=== PATIENT | female | born 1960 | race Caucasian/White ===

== ENCOUNTER 2019-05-07 15:05 | Emergency (ER) | payer MEDICAID ==
[~2019-05-07] VITALS: Ht 157.5 cm; Wt 81.6 kg
[2019-05-07 15:15] VITALS: BP 145/85
== END 2019-05-07 15:51 | disposition home or self-care (01) ==
LOC: ER 15:14
DX: B02.9 Zoster without complications (principal)

== ENCOUNTER 2021-04-18 13:10 | Emergency (ER) | payer MEDICAID ==
[~2021-04-18] VITALS: Ht 165.1 cm; Wt 75.7 kg
--- NOTE | 2021-04-18 13:40 | NUR ---
EPIGASTRIC AREA PAIN, + NAUSEA ON AND OFF X 2 DAYS. PT AAOX4, VSS RR EVEN & UNLABORED. DENIES CP, SOB, DIZZINESS, DIARRHEA AT THIS TIME. AWAITING EVAL BY ERMD. WILL CONT TO MONITOR.
[2021-04-18] MEDS ORDERED: LIDOCAINE VISCOUS 2% UD 15 ML UDC ONE (14:27)
[2021-04-18] MEDS ORDERED: MAG HYDROX/AL HYDROX/SIMETH 30 ML UDC ONE (14:27)
[2021-04-18] MEDS ORDERED: ONDANSETRON HCL/PF 4 MG/2 ML VIAL ONE (14:27)
[2021-04-18] MEDS ORDERED: FAMOTIDINE/PF INJ 20 MG/2 ML VIAL IV ONE ×2 (14:27→14:30)
[2021-04-18] MEDS ORDERED: MAG HYDROX/AL HYDROX/SIMETH 30 ML UDC PO ONE (14:30)
[2021-04-18] MEDS ORDERED: ONDANSETRON HCL/PF 4 MG/2 ML VIAL IVP ONE (14:30)
[2021-04-18] MEDS ORDERED: IV NS 0.9% 1,000 ML BAG IV ONE (14:30)
[2021-04-18] MEDS ORDERED: LIDOCAINE VISCOUS 2% UD 15 ML UDC MM ONE (14:30)
[2021-04-18 14:40] LABS: BASOPHILS % (AUTO) 0.5 % (0.0-2.0); EOSINOPHILS % (AUTO) 0.1 % (0.0-6.0); HEMATOCRIT 40 % (33-45); HEMOGLOBIN 13.3 g/dL (11.5-14.8); LYMPHOCYTES # (AUTO) 1.1 K/uL (0.8-4.8); LYMPHOCYTES % (AUTO) 10.8 % (20.0-44.0); MEAN CORPUSCULAR HGB CONC 33 g/dl (31.0-36.0); MEAN CORPUSCULAR VOLUME 88 fL (82-100); MONOCYTES # (AUTO) 0.7 K/uL (0.1-1.30); NEUTROPHILS # (AUTO) 8.1 K/uL (1.8-8.9); NEUTROPHILS % (AUTO) 81.6 % (43.0-81.0); PLATELET COUNT (AUTO) 281 K/uL (150-450); RED BLOOD CELL COUNT(AUTO) 4.59 MIL/uL (4.0-5.2)
--- NOTE | 2021-04-18 14:40 | NUR ---
DR. MAYORGA AT BS FOR EVAL.
[2021-04-18 14:47] LABS: CALCIUM, SERUM 8.4 mg/dL (8.5-10.1); CREATININE 0.9 mg/dL (0.6-1.3); POTASSIUM 3.5 mmol/L (3.5-5.1)
[2021-04-18 14:53] LABS: ALBUMIN 3.3 g/dL (3.4-5.0); BILIRUBIN,DIRECT 0.2 mg/dL (0.0-0.2); BILIRUBIN,TOTAL 0.9 mg/dL (0.2-1.0); TOTAL PROTEIN, SERUM 7.4 g/dL (6.4-8.2)
[2021-04-18 15:33] LABS: BILIRUBIN,URINE Negative (NEGATIVE); COLOR,URINE YELLOW (YELLOW); LEUKOCYTE ESTERASE ,URINE Small (NEGATIVE); NITRITE, URINE Positive (NEGATIVE); PH,URINE 6.5 (5.0-8.0); PROTEIN,URINE Negative (NEGATIVE); UGLUCOSE Negative (NEGATIVE); UROBILINOGEN,URINE 0.2 EU/dL (0.2)
[2021-04-18 15:43] LABS: BACTERIA,URINE Many /HPF (None Seen); SQUAMOUS EPITHELIAL CELL,UR Few /HPF (None Seen); WBC,URINE 21-50 /HPF (0-3)
[2021-04-18] MEDS ORDERED: CEFTRIAXONE 1 G in IV D5W 50 ML IV ONE (16:00)
[2021-04-18] MEDS ORDERED: FAMO-131 PO (16:01)
[2021-04-18] MEDS ORDERED: ONDA4TAB5 PO (16:01)
[2021-04-18] MEDS ORDERED: CEPH500C2 PO (16:01)
[2021-04-18] MEDS ORDERED: CEFTRIAXONE 1GM BAG (ER ONLY) 50 ML IV ONE (16:05)
[2021-04-18] MEDS ORDERED: DOXY-326 PO (16:08)
[2021-04-18 16:53] VITALS: BP 118/64
--- NOTE | 2021-04-18 16:53 | NUR ---
Patient discharged to home in stable condition. Written and verbal after care instructions given. Patient verbalizes understanding of instruction. IV removed. Catheter intact and site benign. Pressure and 4x4 applied to site. No bleeding noted.
== END 2021-04-18 16:54 | disposition home or self-care (01) ==
LOC: ER 13:14
DX: N39.0 Urinary tract infection, site not specified (principal); R10.13 Epigastric pain; R11.0 Nausea; J18.1 Lobar pneumonia, unspecified organism; Z79.899 Other long term (current) drug therapy
CPT/HCPCS: 36415; 71045; 71250; 74176; 80048; 80076; 81001; 83690; 85025; 87077; 87086; 87186; 93005; 96361; 96365; 96375; 99285; J0696 ×2; J2405; J3490; J7030; J7060

== ENCOUNTER 2021-09-07 13:31 | Emergency (ER) | payer SELFPAY ==
[~2021-09-07] VITALS: Ht 160 cm; Wt 72.6 kg
[~2021-09-07 13:31] MED LIST: DOXY-326 PO; FAMO-131 PO; ONDA4TAB5 PO
--- NOTE | 2021-09-07 13:35 | NUR ---
BROUGHT IN BY DAUGHTER THIS 61YO FEMALE PATIENT WITH CC OF RIGHT KNEE SWELLING X3 DAYS. PLACED COMFABLY ON BED. WAITING FOR MD ORDER
--- NOTE | 2021-09-07 13:40 | NUR ---
SEEN BY ER MD AT BEDSIDE
[2021-09-07] MEDS ORDERED: KETOROLAC TROMETHAMINE INJ 30 MG/ML VIAL IM ONE (14:30)
--- NOTE | 2021-09-07 14:30 | NUR ---
INSURANCE LOSS CONTROL SURVEYOR AT [facility] TO PERFORM RIGHT KNEE XRAY
[2021-09-07] MEDS ORDERED: ACET-2605 PO (15:39)
[2021-09-07] MEDS ORDERED: IBUP-1957 PO (15:39)
--- NOTE | 2021-09-07 15:49 | NUR ---
Patient discharged to home in stable condition. Written and verbal after care instructions given. Patient verbalizes understanding of instruction.
[2021-09-07 15:52] VITALS: BP 122/79
== END 2021-09-07 15:52 | disposition home or self-care (01) ==
LOC: ER 13:35
DX: M25.461 Effusion, right knee (principal); M25.561 Pain in right knee; Z79.899 Other long term (current) drug therapy
CPT/HCPCS: 73564; 96372; 99283; J1885